=== PATIENT | female | born 1995 | race Caucasian/White ===

== ENCOUNTER 2023-10-13 17:20 | Emergency (ER) | payer MEDICAID ==
[2023-10-13 19:15] LABS: Bilirubin Negative (Negative); Blood, Urine Large (Negative); Glucose, Urine (Dipstick) Negative (Negative); Ketone, Urine 40 mg/dL (Negative); Leukocyte Negative (Negative); Nitrite Negative (Negative); Protein, Urine (Dipstick) Negative (Neg-Trace); Urobilinogen 0.2 mg/dL (Less than 2); pH, Urine 5.5 (5.0-9.0)
[2023-10-13 19:16] LABS: Clarity Cloudy (Clear)
[2023-10-13 19:39] LABS: CAUTI Indications for Culture Dysuria,urgency,freq
[2023-10-13 19:40] LABS: Bacteria/HPF Rare-Few HPF (None Seen); RBC/HPF Greater than 50 HPF (0-3); WBC/HPF 0-3 HPF (0-3)
[2023-10-13 19:41] LABS: Urine Culture Reflex No No
== END 2023-10-13 19:58 | disposition home or self-care (01) ==
LOC: MADERS 17:20
DX: O20.0 Threatened abortion (principal); O99.891 Other specified diseases and conditions complicating pregnancy; R31.9 Hematuria, unspecified; Z3A.01 Less than 8 weeks gestation of pregnancy
CPT/HCPCS: 36415; 81001; 84702; 86900; 86901; 90384; 96372; 99283